=== PATIENT | male | born 1935 | race Caucasian/White ===

== ENCOUNTER 2022-03-18 17:29 | Observation (INO) ==
[2022-03-18] MEDS ORDERED: Isovue-370 500 ML BOTTLE IVP ONE (19:17)
[2022-03-18 20:01] LABS: Basophils % 0.5 %; Eosinophils % 0.1 %; Hematocrit 29.8 % (37.5-50.1); Hemoglobin 9.4 g/dL (12.9-16.9); Immature Granulocytes % 0.3 % (0-4); Lymphocytes # 0.4 K/mcL (0.6-4.6); Mean Corpuscular HGB Conc 31.5 g/dL (31.6-35.5); Mean Corpuscular Hemoglobin 26.3 pg (28.0-33.3); Mean Corpuscular Volume 83.5 fL (83.0-100.0); Mean Platelet Volume 11.8 fL (9.4-12.4); Monocytes # 0.7 K/mcL (0.0-1.3); Monocytes % 8.9 %; Neutrophils # 6.5 K/mcL (1.6-8.9); Platelet Count 146 K/mcL (140-400); Red Blood Count 3.57 M/mcL (4.19-5.50); Red Cell Distribution Width 17.2 % (11.5-14.5); Segmented Neutrophils % 85.2 %; White Blood Count 7.6 K/mcL (4.3-11.1)
[2022-03-18 20:12] LABS: INR 1.3; Prothrombin Time 14.2 Seconds (9.4-12.1)
[2022-03-18 20:15] LABS: Activated Partial Thrombo Time 25.5 Seconds (26.0-36.0)
[2022-03-18 20:18] LABS: Calcium 9.1 mg/dL (8.6-10.3); Potassium 4.2 mEq/L (3.5-5.1)
[2022-03-18] MEDS ORDERED: *HR* Metoprolol 5 MG/5 ML VIAL IVP ONE (22:20)
[2022-03-18 23:28] VITALS: O2SAT 97
[2022-03-19] MEDS ORDERED: Acetaminophen 325 MG TABLET PO PRN
[2022-03-19] MEDS ORDERED: Naloxone 0.4 MG/ML INJ IVP PRN
[2022-03-19] MEDS ORDERED: Ondansetron 4 MG/2 ML VIAL IVP PRN
[2022-03-19] MEDS ORDERED: Melatonin 3 MG TABLET PO PRN
[2022-03-19] MEDS ORDERED: SODIUM CHLORIDE/NAHCO3/KCL/PEG 4,000 ML SOLN.RECON PO ONE (00:03)
[2022-03-19] MEDS ORDERED: *HR* Dextrose 50 % in Water (Syg) 50 ML SYRINGE IVP PRN (00:05)
[2022-03-19] MEDS ORDERED: D5% in Water 1,000 ML IVC PRN (00:05)
[2022-03-19] MEDS ORDERED: Dextrose Gel 15 GM/37.5 ML TUBE PO PRN ×2 (00:05)
[2022-03-19 00:39] VITALS: BP 151/84; PULSE 96; TEMP 97.5
[2022-03-19] MEDS ORDERED: Haloperidol Lactate 5 MG/ML VIAL IVP ONE (01:36)
[2022-03-19 01:40] LABS: Basophils % 0.5 %; Eosinophils % 0.5 %; Hematocrit 26.1 % (37.5-50.1); Hemoglobin 8.3 g/dL (12.9-16.9); Immature Granulocytes % 0.3 % (0-4); Lymphocytes # 0.8 K/mcL (0.6-4.6); Lymphocytes % 14.1 %; Mean Corpuscular HGB Conc 31.8 g/dL (31.6-35.5); Mean Corpuscular Hemoglobin 26.4 pg (28.0-33.3); Mean Corpuscular Volume 83.1 fL (83.0-100.0); Mean Platelet Volume 12.6 fL (9.4-12.4); Monocytes # 0.8 K/mcL (0.0-1.3); Monocytes % 12.8 %; Neutrophils # 4.3 K/mcL (1.6-8.9); Platelet Count 155 K/mcL (140-400); Red Blood Count 3.14 M/mcL (4.19-5.50); Red Cell Distribution Width 17.4 % (11.5-14.5); Segmented Neutrophils % 71.8 %; White Blood Count 5.9 K/mcL (4.3-11.1)
[2022-03-19 01:48] LABS: INR 1.3; Prothrombin Time 14.4 Seconds (9.4-12.1)
[2022-03-19 02:06] LABS: Albumin 3.6 g/dL (3.5-5.7); Albumin/Globulin Ratio 1.4 (1.1-2.2); Bilirubin,Total 0.5 mg/dL (0.3-1.0); Calcium 8.9 mg/dL (8.6-10.3); Globulin 2.5 g/dL (2.4-3.5); Magnesium 1.9 mg/dL (1.6-2.6); Phosphorous 3.7 mg/dL (2.7-4.5); Potassium 3.8 mEq/L (3.5-5.1); Total Protein 6.1 g/dL (6.4-8.9)
== END 2022-03-19 02:20 | disposition left against medical advice (07) ==
LOC: 3ANU 17:29 → EMEROOARM 17:29 → SUATTDRO 23:28 → 3ANU 03-19 00:23
PROVIDERS: ADMIT Internal Medicine; ATTEND Internal Medicine